=== PATIENT | male | born 1980 | race African-American/Black ===

== ENCOUNTER 2020-04-13 16:00 | Emergency (ER) | payer OTHER ==
[~2020-04-13] VITALS: Wt 81.6 kg
[~2020-04-13 16:00] MED LIST: FLEXERIL10 MG PO; MOTRIN800 MG PO
[2020-04-13] MEDS ORDERED: CEPHALEXIN500 M1 PO (16:38)
== END 2020-04-13 17:26 | disposition home or self-care (01) ==
LOC: ED 16:00
DX: S61.211A Laceration without foreign body of left index finger without damage to nail, initial encounter (principal); X58.XXXA Exposure to other specified factors, initial encounter; Y93.89 Activity, other specified; Y92.89 Other specified places as the place of occurrence of the external cause; Y99.8 Other external cause status